=== PATIENT | female | born 1985 | race Caucasian/White ===

== ENCOUNTER 2016-09-23 12:41 | Emergency (ER) | payer OTHER ==
[~2016-09-23 12:41] MED LIST: ACETAMINOPHEN PO; ALBUTEROL MININEB; ALBUTEROL0.83 MG/ML IH; ALBUTEROL17 GM; ALBUTEROL17 GM INH; ATARAX PO; BREO ELLIPTA I1 EACH INH; BROMFED PO; BUSPAR PO; CARDIZEM SR PO; CELEXA PO; FLONASE 0.05% N16 G1; IBUPROFEN PO; LAMICTAL100 MG PO; LEXAPRO PO; LISINOPRIL PO; LISINOPRIL-HCTZ1 T15 PO; LISINOPRIL10 MG; LORTAB 5/500 TA1 TA1 PO; PERCOCET 5-3251 TAB; PERCOCET5/325 PO; PREDNISONE PO; PREDNISONE5 M1; SINGULAIR PO; SYMBICORT; SYMBICORT INH; ZITHROMAX; ZITHROMAX PO
[2016-09-23] MEDS ORDERED: LISINOPRIL (12:45)
== END 2016-09-23 13:27 | disposition home or self-care (01) ==
LOC: SED 12:41
DX: R11.2 Nausea with vomiting, unspecified (principal); R19.7 Diarrhea, unspecified; R10.9 Unspecified abdominal pain; I10 Essential (primary) hypertension; J45.909 Unspecified asthma, uncomplicated; J44.9 Chronic obstructive pulmonary disease, unspecified; F17.210 Nicotine dependence, cigarettes, uncomplicated; Z79.899 Other long term (current) drug therapy
CPT/HCPCS: 99283; C9113; J2405

== ENCOUNTER 2016-11-25 12:49 | Emergency (ER) | payer OTHER ==
--- NOTE | ~2016-11-25 | CT71 ---
[facility]. [facility] A Service of [facility] RADIOLOGY TEXT RESULTS PATIENT: ALBERT QUIGLEY LOCATION: SED : 81 UNIT #: [id number] AGE: [address]: Nidhi Bhat MD SEX: F ORDER DR: [id number] [address] [address] [id number] E MR#: [id number] Acc #: [id number] NAME: ALBERT QUIGLEY : 1985 SEX: F STUDY DATE/TIME: 11/25/2016 13:47 UNIT: SED ROOM: STUDY DESCRIPTION: CT Head Wo Contrast Attending Physician: Nidhi Bhat M.D. Ordering Physician: Nidhi Bhat M.D. Primary Care Physician: Ruthie Leon M.D. MEDICAL IMAGING REPORT This report is preliminary unless electronic signature is present. EXAM CT of the head, 11/25/2016. HISTORY Dizziness. Blood pressure dropped. Left side numb and tingling since 7 am. Got dizzy, felt like she was going to pass out. Does not remember if she did or not, but she has no memory of time passing. TECHNIQUE CT head performed skull base through vertex without intravenous contrast. This CT exam was performed with one or more of the following radiation dose reduction techniques: automatic exposure control, adjustment of mA and/or kV according to patient size, and iterative reconstruction. COMPARISON 07/19/2008 FINDINGS The brainstem is unremarkable. Cerebellum and cerebral hemispheres show normal qiu matter-white matter differentiation. No hemorrhage. No evidence of acute cortical ischemia. The midline structures are nondisplaced. The basal ganglia are intact. The ventricles, cisterns, and sulci are normal in size and contour. There is no intra or extraaxial mass effect or abnormal intracranial fluid collection. Intraorbital soft tissues are unremarkable. The visualized paranasal sinuses and mastoid air cells show some small air-fluid levels in right mastoid air cells. No fracture. IMPRESSION 1. The brain appears normal. 2. If patient has ongoing neurologic symptoms, consider follow up imaging. [facility] A Service of [facility] RADIOLOGY TEXT RESULTS PATIENT: ALBERT QUIGLEY LOCATION: SED : 81 UNIT #: [id number] AGE: [address]: Nidhi Bhat MD SEX: F ORDER DR: 3. Small air-fluid levels of the right mastoid air cells. Correlate with any clinical indications of mastoid inflammation. Dictated by... Danny Gomez M.D. THIS IS AN ELECTRONICALLY VERIFIED REPORT Danny Gomez M.D. at 11/25/2016 10:43 PM LANDEN/brian TD: 11/25/2016 15:09 JOB #: [id number] MEDICAL IMAGING REPORT Page 1 of 1
--- NOTE | ~2016-11-25 | CR71 ---
[facility]. [facility] A Service of [facility] RADIOLOGY TEXT RESULTS PATIENT: ALBERT QUIGLEY LOCATION: SED : 83 UNIT #: [id number] AGE: [address]: Nidhi Bhat MD SEX: F ORDER DR: [id number] [address] [address] [id number] E MR#: [id number] Acc #: [id number] NAME: ALBERT QUIGLEY : 1985 SEX: F STUDY DATE/TIME: 11/25/2016 13:53 UNIT: SED ROOM: STUDY DESCRIPTION: CR Chest Single View Attending Physician: Nidhi Baht M.D. Ordering Physician: Nidhi Bhat M.D. Primary Care Physician: Ruthie Leon M.D. MEDICAL IMAGING REPORT This report is preliminary unless electronic signature is present. EXAM AP chest. HISTORY Hypotension with left-sided numbness and tingling and dizziness with near syncope this morning. TECHNIQUE Single AP view chest was obtained and compared with 01/22/2016. FINDINGS A single AP portable view of the chest shows both lungs to be clear. The heart is normal in size. The mediastinal contour is normal. No significant bone abnormalities are seen. IMPRESSION Normal portable chest. Dictated by... Eduard Vail M.D. THIS IS AN ELECTRONICALLY VERIFIED REPORT Eduard Vail M.D. at 11/25/2016 4:42 PM CASIF/brian TD: 11/25/2016 14:17 JOB #: [id number] MEDICAL IMAGING REPORT Page 1 of 1
--- NOTE | ~2016-11-25 | EKG ---
PATIENT: ALBERT QUIGLEY UNIT #: [id number] Ventricular Rate: 98 BPM Atrial Rate: 98 BPM P-R Interval: 154 ms QRS Duration: 82 ms Q-T Interval: 362 ms QTC Calculation(Bezet): 462 ms P Massena: 62 degrees Calculated R Massena: 49 degrees Calculated T Massena: 43 degrees Diagnosis Line: Normal sinus rhythm Diagnosis Line: Normal ECG Diagnosis Line: When compared with ECG of 07-AUG-2014 12:04, Diagnosis Line: Criteria for Septal infarct are no longer Present Diagnosis Line: ST no longer depressed in Lateral leads Diagnosis Line: Confirmed by ELISE PUENTE MD ([id number]) on Diagnosis Line: 11/27/2016 9:01:44 AM INTERPRETING MD: CINDI BULLOCK
[~2016-11-25 12:49] MED LIST changes: +LISINOPRIL
[2016-11-25 13:26] LABS: BASOPHIL# 0.2 X10e3 (0-0.3); EOSINOPHIL# 0.2 X10e3 (0-0.7); EOSINOPHIL% 1.4 % (0.0-7.0); HEMATOCRIT 44.7 % (35.0-45.0); HEMOGLOBIN 15.2 gm/dL (12.0-16.0); LYMPHOCYTE# 2.5 X10e3 (1.0-3.5); LYMPHOCYTE% 16.8 % (17.0-45.0); MEAN CORPUSCULAR HEMOGLOBIN 31.9 PG (28-34); MEAN PLATELET VOLUME 7.4 FL (6.5-11.5); MONOCYTE% 6.9 % (3.0-12.0); NEUTROPHIL# 10.8 X10e3 (1.5-7.1); NEUTROPHIL% 73.9 % (40-75); PLATELET COUNT 410 X10e3 (140-420); RED BLOOD COUNT 4.76 X10e (3.90-5.30); RED CELL DISTRIBUTION WIDTH 13.4 % (11.0-15.5); WHITE BLOOD COUNT 14.7 X10e3 (4.0-10.5)
[2016-11-25 13:32] LABS: DIFF IND NO
[2016-11-25 13:48] LABS: INR 1.1; PROTHROMBIN TIME (PATIENT) 12.5 SECONDS (9.5-12.4)
[2016-11-25 13:55] LABS: PARTIAL THROMBOPLASTIN TIME 25.2 SECONDS (25.6-38.1)
[2016-11-25 13:57] LABS: ALKALINE PHOSPHATASE 78 U/L (32-92); ALT (SGPT) 20 U/L (10-40); AST (SGOT) 21 U/L (10-42); BILIRUBIN,TOTAL 0.3 mg/dL (0.2-2.0); BLOOD UREA NITROGEN 13 mg/dL (9-23); BUN/CREATININE RATIO 9.28; CALCIUM SERUM 8.9 mg/dL (8.4-10.2); CARBON DIOXIDE 28 mmol/L (22-31); CHLORIDE 93 mmol/L (100-111); CREATININE SERUM 1.4 mg/dL (0.6-1.4); GLOM FILT RATE Estimated 49.2 mL/min (>60); GLUCOSE FASTING 99 mg/dL (70-110); POTASSIUM 3.2 mmol/L (3.5-5.1); PROTEIN TOTAL SERUM 8.5 g/dL (6.0-8.3); SODIUM 130 mmol/L (135-145)
[2016-11-25 13:58] LABS: BILIRUBIN, DIRECT <0.1 mg/dL (0.0-0.2); BILIRUBIN,INDIRECT 0.2 mg/dL (0.0-0.9)
[2016-11-25 14:30] LABS: URINE SOURCE CLEAN CATCH
[2016-11-25 14:34] LABS: URINE APPEARANCE SL CLOUDY; URINE BLOOD 2+ (NEG); URINE COLOR YELLOW; URINE GLUCOSE NEG (NORM); URINE KETONE TRACE (NEG); URINE LEUKOCYTE ESTERASE 1+ (NEG); URINE NITRATE NEG (NEG); URINE PH 5.5 (5-8); URINE PROTEIN 2+ (NEG); URINE SPECIFIC GRAVITY >=1.030 (1.003-1.035)
[2016-11-25 14:36] LABS: MICRO INDICATED? YES; URINE BILIRUBIN NEG (NEG)
[2016-11-25 14:41] LABS: URINE BACTERIA 1+ (NEG)
[2016-11-25 14:42] LABS: AMPHETAMINE NEG (NEG); BARBITURATES NEG (NEG); BENZODIAZEPINES NEG (NEG); COCAINE NEG (NEG); MARIJUANA NEG (NEG); OPIATES NEG (NEG); TRICYCLIC ANTIDEPRESSANTS NEG (NEG); U METHADONE NEG (NEG); URINE SQUAMOUS EPITHELIAL CELL FEW /[HPF]; URINE TRICHOMONAS PRESENT
[2016-11-25 14:45] LABS: POC - CKMB <1.0 ng/mL (0.0-7.9); POC - TROPONIN <0.05 ng/mL (<=0.05)
== END 2016-11-25 16:20 | disposition left against medical advice (07) ==
LOC: SED 12:49
PROVIDERS: Emergency Medicine
DX: R55 Syncope and collapse (principal); J02.0 Streptococcal pharyngitis; J44.9 Chronic obstructive pulmonary disease, unspecified; I10 Essential (primary) hypertension; F17.200 Nicotine dependence, unspecified, uncomplicated
CPT/HCPCS: 36415; 70450; 71010; 80048; 80076; 80307; 81003; 82553; 84484; 84703; 85025; 85610; 85730; 87880; 93005; 96360; 99284